=== PATIENT | male | born 1990 | race African-American/Black ===

== ENCOUNTER 2019-09-09 23:20 | Emergency (ER) | payer SELFPAY ==
[2019-09-09 23:23] VITALS: BP 188/99; PULSE 65; RESP 17; TEMP 36.7; O2SAT 97
--- NOTE | 2019-09-10 00:28 | ED.GENADULT ---
HPI - General Adult General Chief complaint: Unspecified Stated complaint: took x pill and now I feel weird Time Seen by Provider: 09/10/19 00:20 History of Present Illness HPI narrative: Patient took an ecstasy pill this afternoon, and started to hallucinate that the road was moving under him while he was driving. He got his girlfriend drive and then felt even worse in the passenger seat. He has never experienced this before although he is done ecstasy before. The symptoms have decreased since he has been waiting here in the emergency room. He still has sweaty hands and a slight sense of unease. Last week he had vomiting 3 days in a row in the morning, after having a lot of alcohol prior. 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 Onset (ago): hour(s) Related Data Allergies Allergy/AdvReac Type Severity Reaction Status Date / Time No Known Allergies Allergy Verified 09/09/19 23:26 Review of Systems Review of Systems: Narrative: CONSTITUTIONAL: Denies fever, chills, or sweats. EYES: Denies visual changes, redness, or discharge. ENT: Denies rhinorrhea, congestion, sore throat, or otalgia. CARDIOVASCULAR: Denies chest pain, palpitations, or edema. RESPIRATORY: Denies cough or dyspnea. GASTROINTESTINAL: Denies abdominal pain, nausea, vomiting, or diarrhea. GENITOURINARY: Denies dysuria or hematuria. SKIN: Denies rash or itching. MUSCULOSKELETAL: Denies back pain, joint pain, or myalgia. NEUROLOGIC: Denies headache, numbness, or weakness. PSYCHIATRIC: Denies anxiety or depression. PMFSH Past Medical History Medical History Ecstasy poisoning Excessive drinking alcohol Surgical History Surgical History (Updated 09/10/19 @ 00:30 by Sridevi Gurrola MD) History of circumcision Social History Social History (Updated 09/10/19 @ 00:31 by Sridevi Gurrola MD) Alcohol intake: current Substance use: current Exam Narrative: Exam Narrative: GENERAL: Well-appearing, well-nourished, and in no acute distress. Tall, many tattoos, trim monique. HEAD: Normocephalic, atraumatic. EYES: PERRLA and EOMI. ENT: Nares clear, no rhinorrhea or epistaxis. Mucous membranes moist. NECK: Supple. CHEST: Clear to auscultation. No respiratory distress. HEART: Regular rate and rhythm. No murmur heard. Normal peripheral pulses. ABDOMEN: Soft, nontender, nondistended, normal active bowel sounds. EXTREMITIES: Normal range of motion. No edema. SKIN: Warm, dry, no rash. NEURO: No focal deficits. Alert and oriented x3. PSYCH: Normal mood and affect. Course Vital Signs Vital signs: Vital Signs Temperature 98.1 F 09/09/19 23:23 Pulse Rate 65 09/09/19 23:23 Respiratory Rate 09/09/19 23:23 Blood Pressure 188/99 H 09/09/19 23:23 Pulse Oximetry 97 09/09/19 23:23 Temperature 98.1 F 09/09/19 23:23 Pulse Rate 65 09/09/19 23:23 Respiratory Rate 09/09/19 23:23 Blood Pressure 188/99 H 09/09/19 23:23 Pulse Oximetry 97 09/09/19 23:23 Medical Decision Making Medical Records Medical records reviewed: Yes I reviewed the patient's medical records. Vital Signs Vital Signs: Vital Signs Temperature 98.1 F 09/09/19 23:23 Pulse Rate 65 09/09/19 23:23 Respiratory Rate 17 09/09/19 23:23 Blood Pressure 188/99 H 09/09/19 23:23 Pulse Oximetry 97 09/09/19 23:23 Temperature 98.1 F 09/09/19 23:23 Pulse Rate 65 09/09/19 23:23 Respiratory Rate 17 09/09/19 23:23 Blood Pressure 188/99 H 09/09/19 23:23 Pulse Oximetry 97 09/09/19 23:23 Discharge Plan Discharge Clinical Impression: Ecstasy poisoning Qualifiers: Encounter type: initial encounter Injury intent: undetermined intent Qualified Code(s): T43.644A - Poisoning by ecstasy, undetermined, initial encounter Patient Disposition: Home, Self-Care Condition: Stable Instructions: Polysubstance Abuse (ED) Additional Instructions: Do not do drugs, d
[2019-09-10 00:39] VITALS: BP 159/95; PULSE 58; RESP 20; TEMP 36.6; O2SAT 99
== END 2019-09-10 00:41 | disposition home or self-care (01) ==
PROVIDERS: Emergency Provider Emergency Medicine
DX: T43.644A Poisoning by ecstasy, undetermined, initial encounter (principal)
CPT/HCPCS: 99281